=== PATIENT | female | born 1950 | race Caucasian/White ===

== ENCOUNTER 2016-04-02 02:46 | Inpatient (IN) | payer OTHER ==
[~2016-04-02] VITALS: Ht 154.9 cm; Wt 80.0 kg
[~2016-04-02 02:46] MED LIST: ASPI81TA3 PO; CRB100TCR PO; FLUTICASONE NS; GABA300C16 PO; LEVE-5 PO; LEVETIRACETAM; LORATIDINE PO; MONTELUKAST PO; PANT40TA4 PO; SUCR1TAB27 PO; VENTOLIN
[2016-04-02 06:00] VITALS: BP 125/71; PULSE 68; RESP 18
[2016-04-02 06:03] VITALS: Ht 154.9 cm; Wt 80.0 kg
[2016-04-02] MEDS ORDERED: LEVE500S9 PO (06:34)
[2016-04-02] MEDS ORDERED: ONDANSETRON 4 MG INJ IV PRN ×2 (07:00→10:30)
[2016-04-02] MEDS ORDERED: morphine 10 MG INJ IM PRN (07:00)
[2016-04-02] MEDS ORDERED: DEXTROSE 5%-0.45% NACL 1,000 ML IV SCH (07:00)
[2016-04-02 07:41] VITALS: BP 134/75; RESP 20
[2016-04-02] MEDS ORDERED: BISACODYL 10 MG SUPP PR PRN (10:30)
[2016-04-02] MEDS ORDERED: DOCUSATE SODIUM 100 MG CAP PO PRN (10:30)
[2016-04-02] MEDS ORDERED: NACL 0.9% 3 ML SYG IV SCH (10:30)
[2016-04-02] MEDS ORDERED: ACETAMINOPHEN 650 MG SUPP PR PRN (10:30)
[2016-04-02] MEDS ORDERED: ZOLPIDEM 5 MG TAB PO PRN (10:30)
[2016-04-02] MEDS: D5W-0.45 NACL + KCL 20 MEQ 1,000 ML IV SCH ×2 (10:30→18:55)
[2016-04-02 11:22] LABS: HEMATOCRIT 35.3 % (37.0-47.0); HEMOGLOBIN 11.6 g/dl (12.0-16.0)
[2016-04-02] MEDS: CIPROFLOXACIN 400MG/D5W 200 ML IVPB SCH ×2 (11:38→20:53)
[2016-04-02] MEDS: LEVETIRACETAM (100 MG/ML) 5ML CUP PO SCH ×2 (11:38→20:53)
[2016-04-02] MEDS ORDERED: traMADol 50 MG TAB PO PRN (13:30)
[2016-04-02 16:21] LABS: HEMOGLOBIN 11.2 g/dl (12.0-16.0)
[2016-04-02] MEDS ORDERED: CARI350T29 PO (16:54)
[2016-04-02] MEDS ORDERED: PANT40TA4 PO (16:54)
[2016-04-02] MEDS ORDERED: CARAS PO (16:54)
[2016-04-02] MEDS ORDERED: LORA1TAB PO (17:01)
[2016-04-02] MEDS ORDERED: LEVO50TA74 PO (17:01)
--- NOTE | 2016-04-02 17:22 | HP ---
DATE OF ADMISSION: 04/02/2016 CONSULTANTS: 1. Colorectal surgeon. 2. Tailing Machine Operator. CHIEF COMPLAINT: Lower gastrointestinal bleed. 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 She had an upper endoscopy with biopsy on 09/28/2015 and had a colonoscopy with biopsy on 11/17 and was referred to a colorectal surgeon as outpatient. Just recently patient got approval b y her insurance to be seen and evaluated by colorectal surgeon. After evaluation by colorectal surg pritesh, the patient has been set up to obtain a rectal biopsy by the surgeon waiting for clearance and approval by her insurance company. Per patient, the patient just got approved and has been schedule d for a rectal biopsy on 04/16/2016. Although yesterday on 04/01/2016, the patient while using the restroom noticed rectal bleed; therefore she went to [facility] where she was found to have hemoglobin of 11.5, hematocrit 35.2. She was also found to have urinary tract infection and was tr eated with IV antibiotics. Secondary to insurance purposes, the patient was transferred to [facility]. The patient's checker/stocker and colorectal surgeon were consulted and is planned for rectal mass biopsy during this course of hospitalization. PAST MEDICAL AND SURGICAL HISTORY: As above per HPI. MEDICATIONS: 1. Aspirin. 2. Gabapentin. 3. Keppra. 4. Protonix. 5. Sucralfate. 6. . 7. Loratadine. 8. Singulair. 9. Ventolin. ALLERGIES: NO KNOWN DRUG ALLERGIES. FAMILY HISTORY: No history of cancer. Positive for hypertension. SOCIAL HISTORY: Positive history of drug abuse/heroin abuse in remission. [place] of smoking in [place] At this time, the patient lives at home with her daughter. REVIEW OF SYSTEMS: The patient denies having any fever, chills, weight gain, weight loss, anorexia. No chest pain, palpitations, edema, orthopnea. No change in visual acuity, diplopia, photophobia. No headache, dizziness, lightheadedness. Positive for lower abdominal region pain and rectal blee d. No heat and cold intolerance. No hair loss or any other discomfort. The other 12 review of s tems has been found to be negative. PHYSICAL EXAMINATION: VITAL SIGNS: Temperature 97.8, pulse 60, respirations 20, blood pressure 134/75, oxygen saturation 98% in room air. GENERAL APPEARANCE: The patient is lying in the bed comfortably without any acute distress. She is awake, alert, oriented. She is able to answer my questions properly. EYES AND ENT: Conjunctivae and lids are normal. Pupils are normal. Extraocular normal. Hearing g rossly normal. Lips and gums are normal. Oral mucosa is moist. NECK: Supple. Trachea is midline. No lymphadenopathy. RESPIRATORY: Effort is normal. Clear to auscultation bilaterally. CARDIOVASCULAR: Normal S1, S2. Regular rhythm and rate. No murmur, no bruits, no edema. Peripher al pulses, radial pulses palpable. Capillary refill is normal. CHEST: Normal expansion of thorax during inspiration. GASTROINTESTINAL: Abdomen is soft, nontender, not distended. Bowel sounds present. No guarding, n o rebound. GENITOURINARY: Deferred. MUSCULOSKELETAL: Upper and lower extremities within normal limits. Full range of motion. Strength 5/5 both upper and lower extremities. NEUROLOGIC: Cranial nerves II through XII are grossly intact. PSYCHIATRIC: Normal judgment and insight. Alert and oriented x3. Mood and affect is normal. LABORATORY WORK AND IMAGING: Sodium 140, potassium 3.9, chloride 107, bicarbonate 24, BUN 13, creat inine 1.07. GFR 55. AST 23, ALT 28, alkaline phosphatase of 112. PT 11.1, INR less than 1. Blood type O positive. Urine leukocyte esterase positive 3, nitrite positive, blood positive, RBC 6 to 1 0, WBC 100. ASSESSMENT AND PLAN: 1. History of rectal mass with positive rectal bleed. This is likely secondary to the rectal mass. Tailing Machine Operator and colorectal surgeon have been consulted. The patient has been set up for delaney rgical intervention/biopsy of the rectal mass this upcoming on 04/04/2016. We will follow up pathology and patient will be set up for chemotherapy and radiation therapy as per colorectal chano geon. 2. History of seizure disorder. Continue Keppra. 3. History of gastroesophageal reflux disease. Continue proton pump inhibitor. 4. History of neuropathy. Continue gabapentin. 5. History of transient ischemic attack. Continue aspirin. Follow up lipid panel in a.m. and marta t accordingly. 6. For deep venous thrombosis prophylaxis, place the patient on sequential compression devices. Re frain from using any pharmacologic deep venous thrombosis prophylaxis secondary to rectal bleed. 7. At this time, the patient has been admitted to medical/surgical. The patient's comorbidities ar e history of TIA with asthma. We will obtain an EKG. The patient will be evaluated tomorrow by the hospitalist regarding the evaluation preop and biopsy of the rectal mass after evaluation of the EK G and other comorbidities. The patient is moderate/intermediate risk for any surgical intervention secondary to her comorbidities. Total amount of time spent for evaluation of patient and admission workup 40 minutes. Dictated By: ELIDIA CAR MD PN/NTS Conf#: [id number] DID#: [id number]
[2016-04-02 19:23] VITALS: BP 125/79; RESP 20
[2016-04-02] MEDS: ACETAMINOPHEN 325 MG TAB PO PRN (19:41)
[2016-04-02] MEDS: GABAPENTIN 300 MG CAP PO SCH (20:53)
[2016-04-02] MEDS: MONTELUKAST 5 MG TAB PO SCH (20:54)
--- NOTE | 2016-04-02 22:16 | CONS ---
Date/Time of Note Date/Time of Note DATE: 04/02/16 TIME: 22:04 Assessment/Plan Assessment/Plan Chief Complaint/Hosp Course Ms. Marte is a 65 y/o with a suspicious anal mass who I saw recently in my office. 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 Due to my suspicion of malignancy, I had scheduled an outpatient EUA with biopsy. Andreiler today, she presented to the ED with bleeding, though her H/H is not significantly different from what it was last year. We will perform her clearance for surgery while hospitalized, watch serial H/H and on she is scheduled for an EUA with biopsy of her anal lesion. Problems: Consultation Date/Type/Reason Admit Date/Time Apr 02, 2016 at 05:46 Date of Consultation: Apr 02, 2016 Type of Consultation: Colorectal Surgery Reason for Consultation Anal mass, rectal bleeding Referring Provider: ELIDIA CAR MD Hx of Present Illness Ms. Marte underwent an EGD/colonoscopy on 11/30/[address] Avalos to work up rectal bleeding and abdominal pains. She has a history of gastric ulcers. On these exams, she was found to have a hiatal hernia, gastritis, a colon polyp at 70 cm from the anal verge, internal and external hemorrhoids and an "anal mass. " Biopsies revealed the colon polyp and the anal lesion to both be "hyperplastic polyps." Due to the suspicious nature of the anal mass, she was referred to me. She reports occasional anorectal pain and bleeding on the stool and TP at times. She has a daily BM that can be difficult at times. She recently developed rectal bleeding that was worrisome for her so she went to the [facility]. She was transferred to [facility] due to insurance carriers. Currently, she denies any rectal bleeding. ROS: Constitutional: The patient denied fever and chills. Eyes: The patient complained of blurred vision (wear glasses). Ears/Nose/Throat/Neck: The patient denied hearing loss and dysphagia. Cardiovascular: The patient denied chest pain, chest pressure and palpitations. Respiratory: The patient denied cough and dyspnea. Gastrointestinal: The patient complained of nausea (when laying down after meals), rectal bleeding and rectal pain but denied vomiting, diarrhea, constipation and rectal itching. Genitourinary/Nephrology: The patient complained of nocturia but denied dysuria and hematuria. Neurologic: The patient complained of headache and seizure (last seizure was about 5 years ago) but denied tremor. Hematologic/Lymphatic: The patient complained of easy bruising but denied easy bleeding and prolonged bleeding. Past Medical History Epilepsy Peptic ulcers Personal history of transient ischemic attack (TIA), and cerebral infarction without residual deficits Past Surgical History ORIF, lower extremity Transvaginal "suspension" surgery Tonsillectomy Social History Smoking Status: Never smoker Drug Use: other (Former IVDA) Exam/Review of Systems Vital Signs Vitals Vital Signs Date Time Temp Pulse Resp B/P Pulse Ox O2 Delivery O2 Flow Rate FiO2 04/02/16 19:23 97.5 65 20 125/79 97 04/02/16 06:00 Room Air Exam PE: Constitutional general appearance overall: well nourished and well developed Eyes pupils and irises overall: pupils equal, round, reactive to light and accomodation Ears/Nose/Throat lips/teeth/gingiva overall: benign lips, normal dentition and benign gingiva Neck inspection of neck overall: normal size, normal appearance and no masses Respiratory auscultation overall: breath sounds clear bilaterally respiratory effort/rhythm overall: no retractions and normal rate Cardiovascular auscultation of heart overall: regular rate, normal heart sounds and no murmurs inspection of pedal pulses overall: strong, equal bilaterally extremities overall: no edema and no clubbing Abdomen abdominal exam overall: no tenderness percussion: a normal exam rectal exam inspection: Normal appearing perianal skin palpation: anal mass in right lateral anal proximal anal canal ANOSCOPIC EXAM anal polyp firm lesion occupying right lateral anal canal, mild bleeding Musculoskeletal gait and station overall: normal gait and normal station Neurologic mental status overall: alert and oriented Psychiatric orientation/consciousness overall: oriented to person, place and time Results Result Diagram: 04/02/16 1610 Results 24 hrs Laboratory Tests Test 04/02/16 10:50 04/02/16 16:10 Hematocrit 35.3 L 34.0 L Hemoglobin 11.6 L 11.2 L Medications Medications Current Medications Ciprofloxacin/ Dextrose 200 ml @ 200 mls/hr Q12 IVPB Last administered on 04/02t 20:53; Admin Dose 200 MLS/HR; Start 04/02/16 at 11:30 Potassium Chloride/Dextrose/ Sod Cl (D5-1/2ns + KCl 20 Meq) 1,000 ml @ 75 mls/ hr [id number] IV Last administered on 04/02/16 18:55; Admin Dose 75 MLS/HR; Start 04/02/16 at 10:30 Ondansetron HCl (Zofran Inj) 4 mg Q6H PRN IV NAUSEA AND/OR VOMITING; Start at 10:30 Acetaminophen (Tylenol Tab) 650 mg Q6H PRN PO PAIN LEVEL 1-3 OR FEVER Last administered on 04/02/16 19:41; Admin Dose 650 MG; Start 04/02/16 at 10:30 Acetaminophen (Tylenol Supp) 650 mg Q6H PRN [place] PAIN LEVEL 1-3 OR FEVER; Start 04/02/16 at 10:30 Docusate Sodium (Colace) 100 mg Q12H PRN PO CONSTIPATION; Start 04/02/16 at 10: 30 Bisacodyl (Dulcolax Supp) 10 mg DAILY PRN [place] CONSTIPATION; Start 04/02/16 at 10 :30 Zolpidem Tartrate (Ambien) 5 mg QHS PRN PO SLEEP; Start 04/02/16 at 10:30 Pantoprazole (Protonix Iv) 40 mg DAILY@06 IV ; Start 04/03/16 at 06:00 Gabapentin (Neurontin) 300 mg BID PO Last administered on 04/02/16 20:53; Admin Dose 300 MG; Start 04/02/16 at 21:00 Levetiracetam (Keppra Liquid) 1,000 mg BID PO Last administered on 04/02/16 20 :53; Admin Dose 1,000 MG; Start 04/02/16 at 11:30 Montelukast Sodium (Singulair) 5 mg HS PO Last administered on 04/02/16 20:54 ; Admin Dose 5 MG; Start 04/02/16 at 21:00 Tramadol HCl (Ultram) 50 mg Q8H PRN PO PAIN; Start 04/02/16 at 13:30 LUCIANO CHAUDHARI MD Apr 02, 2016 22:15
[2016-04-02 22:52] LABS: HEMATOCRIT 34.5 % (37.0-47.0); HEMOGLOBIN 11.4 g/dl (12.0-16.0)
[2016-04-03] MEDS: PANTOPRAZOLE 40 MG INJ IV SCH (05:26)
[2016-04-03] MEDS ORDERED: PANTOPRAZOLE 40 MG INJ IV SCH (06:00)
[2016-04-03 06:52] LABS: BASOPHILS % 0.6 % (0.0-2.0); EOSINOPHILS # 0.2 10^3/ul (0.0-0.5); EOSINOPHILS % 3.7 % (0.0-7.0); HEMATOCRIT 34.1 % (37.0-47.0); HEMOGLOBIN 11.4 g/dl (12.0-16.0); LYMPHOCYTES # 1.6 10^3/ul (0.8-2.9); LYMPHOCYTES % 35.1 % (15.0-51.0); MEAN CORPUSCULAR HEMOGLOBIN 27.1 pg (29.0-33.0); MEAN CORPUSCULAR HGB CONC 33.5 g/dl (32.0-37.0); MEAN CORPUSCULAR VOLUME 80.9 fl (82.0-101.0); MEAN PLATELET VOLUME 8.1 fl (7.4-10.4); MONOCYTE # 0.4 10^3/ul (0.3-0.9); MONOCYTES % 9.7 % (0.0-11.0); NEUTROPHIL # 2.3 10^3/ul (1.6-7.5); NEUTROPHILS % 50.9 % (39.0-77.0); PLATELET COUNT 269 10^3/UL (140-440); RED BLOOD COUNT 4.22 10^6/ul (4.20-5.40); RED CELL DISTRIBUTION WIDTH 13.8 % (11.5-14.5); UNCORRECTED WBC 4.5 10^3/ul (4.8-10.8); WHITE BLOOD COUNT 4.5 10^3/ul (4.8-10.8)
[2016-04-03 06:54] LABS: IRON 98 ug/dl (35-150); POTASSIUM 4.1 mmol/L (3.5-5.1)
[2016-04-03 06:57] LABS: CREATININE 0.68 mg/dl (0.44-1.00)
[2016-04-03 07:00] LABS: CHOL/HDL RATIO 3.3 RATIO
[2016-04-03 07:05] LABS: TOTAL IRON BINDING CAPACITY 307 ug/dl (241-421)
[2016-04-03 07:09] LABS: CONDITION 1; LH ANALYZER COMMENTS 1
[2016-04-03 07:30] LABS: FERRITIN 14.4 ng/ml (11.1-264.0)
[2016-04-03 07:47] VITALS: BP 133/77; RESP 18
[2016-04-03] MEDS: GABAPENTIN 300 MG CAP PO SCH ×2 (08:48→20:35)
[2016-04-03] MEDS: LEVETIRACETAM (100 MG/ML) 5ML CUP PO SCH ×2 (08:49→20:35)
[2016-04-03] MEDS: CIPROFLOXACIN 400MG/D5W 200 ML IVPB SCH ×2 (08:49→20:36)
[2016-04-03] MEDS: ACETAMINOPHEN 325 MG TAB PO PRN (08:53)
--- NOTE | 2016-04-03 10:15 | PN ---
Date/Time of Note Date/Time of Note DATE: 04/03/16 TIME: 10:13 Assessment/Plan VTE Prophylaxis VTE Prophylaxis Intervention: SCD's Lines/Catheters IV [facility] Peripheral IV Urinary Cath still in place: No Assessment/Plan Assessment/Plan 1. History of rectal mass with positive rectal bleed. This is likely secondary to the rectal mass. Welder Gun and colorectal surgeon have been consulted. The patient has been set up for surgical intervention/biopsy of the rectal mass this upcoming on 04/04/2016. We will follow up pathology and patient will be set up for chemotherapy and radiation therapy as per colorectal surgeon. 2. History of seizure disorder. Continue Keppra. 3. History of gastroesophageal reflux disease. Continue proton pump inhibitor. 4. History of neuropathy. Continue gabapentin. 5. History of transient ischemic attack. Continue aspirin. Follow up lipid panel in a.m. and treat accordingly. 6. For deep venous thrombosis prophylaxis, place the patient on sequential compression devices. Refrain from using any pharmacologic deep venous thrombosis prophylaxis secondary to rectal bleed. 7. At this time, the patient has been admitted to medical/surgical. The patient's comorbidities are history of TIA with asthma. We will obtain an EKG. The patient will be evaluated tomorrow by the hospitalist regarding the evaluation preop and biopsy of the rectal mass after evaluation of the EKG and other comorbidities. The patient is moderate/intermediate risk for any surgical intervention secondary to her comorbidities. Total amount of time spent for evaluation of patient and admission workup 40 minutes. Subjective 24 Hr Interval Summary Free Text/Dictation no acute events, GI and Colorectal surgery has been consulted, waiting for evaluation Exam/Review of Systems Vital Signs Vitals Vital Signs Date Time Temp Pulse Resp B/P Pulse Ox O2 Delivery O2 Flow Rate FiO2 04/03/16 07:47 97.5 69 18 133/77 97 04/02/16 06:00 Room Air Intake and Output 04/02/16 04/02/16 04/03/16 15:00 23:00 07:00 Intake Total 2480 ml 1040 ml Output Total 0 ml Balance 2480 ml 1040 ml Exam GENERAL APPEARANCE: no acute distress RESPIRATORY: Effort is normal. Clear to auscultation bilaterally. CARDIOVASCULAR: Normal S1, S2. Regular rhythm and rate. CHEST: Clear to auscultation GASTROINTESTINAL: Abdomen is soft, nontender, not distended. Bowel sounds present. No guarding, no rebound. Results Result Diagram: 04/03/16 0540 04/03/16 0540 Results 24 hrs Laboratory Tests Test 04/02/16 10:50 04/02/16 16:10 04/02/16 22:30 04/03/16 05:40 Hematocrit 35.3 L 34.0 L 34.5 L 34.1 L Hemoglobin 11.6 L 11.2 L 11.4 L 11.4 L Anion Gap 14 Basophils # 0.0 Basophils % 0.6 Blood Morphology Comment Blood Urea Nitrogen 7 Calcium Level 9.0 Carbon Dioxide Level 24 Chloride Level 109 Creatinine 0.68 Eosinophils # 0.2 Eosinophils % 3.7 Ferritin 14.4 Glucose Level 121 Iron Level 98 Lymphocytes # 1.6 Lymphocytes % 35.1 Magnesium Level 2.0 Mean Corpuscular Hemoglobin 27.1 L Mean Corpuscular Hemoglobin Concent 33.5 Mean Corpuscular Volume 80.9 L Mean Platelet Volume 8.1 Monocytes # 0.4 Monocytes % 9.7 Neutrophils # 2.3 Neutrophils % 50.9 Nucleated Red Blood Cells # 0.0 Nucleated Red Blood Cells % 0.0 Percent Iron Saturation 32 Platelet Count 269 Potassium Level 4.1 Red Blood Count 4.22 Red Cell Distribution Width 13.8 Sodium Level 143 Total Iron Binding Capacity 307 White Blood Count 4.5 L Test 04/03/16 05:55 Cholesterol Level 158 Cholesterol/HDL Ratio 3.3 HDL Cholesterol 47 LDL Cholesterol, Calculated 80 Triglycerides Level 153 H Medications Medications Current Medications Ciprofloxacin/ Dextrose 200 ml @ 200 mls/hr Q12 IVPB Last administered on 04/03 08:49; Admin Dose 200 MLS/HR; Start 04/02/16 at 11:30 Potassium Chloride/Dextrose/ Sod Cl (D5-1/2ns + KCl 20 Meq) 1,000 ml @ 75 mls/ hr [id number] IV Last administered on 04/02/16 18:55; Admin Dose 75 MLS/HR; Start 04/02/16 at 10:30 Ondansetron HCl (Zofran Inj) 4 mg Q6H PRN IV NAUSEA AND/OR VOMITING; Start at 10:30 Acetaminophen (Tylenol Tab) 650 mg Q6H PRN PO PAIN LEVEL 1-3 OR FEVER Last administered on 04/03/16 08:53; Admin Dose 650 MG; Start 04/02/16 at 10:30 Acetaminophen (Tylenol Supp) 650 mg Q6H PRN [place] PAIN LEVEL 1-3 OR FEVER; Start 04/02/16 at 10:30 Docusate Sodium (Colace) 100 mg Q12H PRN PO CONSTIPATION; Start 04/02/16 at 10: 30 Bisacodyl (Dulcolax Supp) 10 mg DAILY PRN [place] CONSTIPATION; Start 04/02/16 at 10 :30 Zolpidem Tartrate (Ambien) 5 mg QHS PRN PO SLEEP; Start 04/02/16 at 10:30 Pantoprazole (Protonix Iv) 40 mg DAILY@06 IV Last administered on 04/03/16 05: 26; Admin Dose 40 MG; Start 04/03/16 at 06:00 Gabapentin (Neurontin) 300 mg BID PO Last administered on 04/03/16 08:48; Admin Dose 300 MG; Start 04/02/16 at 21:00 Levetiracetam (Keppra Liquid) 1,000 mg BID PO Last administered on 04/03/16 08 :49; Admin Dose 1,000 MG; Start 04/02/16 at 11:30 Montelukast Sodium (Singulair) 5 mg HS PO Last administered on 04/02/16 20:54 ; Admin Dose 5 MG; Start 04/02/16 at 21:00 Tramadol HCl (Ultram) 50 mg Q8H PRN PO PAIN; Start 04/02/16 at 13:30 KAILEE BAJWA MD Apr 03, 2016 10:15
[2016-04-03] MEDS: D5W-0.45 NACL + KCL 20 MEQ 1,000 ML IV SCH (13:04)
--- NOTE | 2016-04-03 14:51 | RADRPT ---
Vent Rate: 60 bpm RR Interval: 0 msec CA Interval: 134 msec QRS Duration: 70 msec QT Interval: 424 msec QTC Interval: 424 msec P-R-T [place]: 53 - 65 - 64 degrees Normal sinus rhythm Normal ECG Electronically Signed By: Tor Choudhary [id number]
--- NOTE | 2016-04-03 17:33 | CONS ---
Date/Time of Note Date/Time of Note DATE: 04/03/16 TIME: 17:31 Assessment/Plan Assessment/Plan Additional Assessment/Plan ASSESSMENT AND PLAN: 1. History of Anal mass,rectal bleeding stable 2. History of seizure disorder. Continue Keppra. 3. History of gastroesophageal reflux disease. Continue proton pump inhibitor. 4. History of neuropathy. Continue gabapentin. 5. History of transient ischemic attack. Continue aspirin. Follow up lipid panel in a.m. and treat accordingly. Plan biopsy of Anal mass by Dr. Frye monitor H&H Consultation Date/Type/Reason Admit Date/Time Apr 02, 2016 at 05:46 Initial Consult Date 04/02/16 Type of Consultation: Colorectal Surgery Referring Provider: ELIDIA CAR MD 24 HR Interval Summary Free Text/Dictation no further bleeding Exam/Review of Systems Vital Signs Vitals Vital Signs Date Time Temp Pulse Resp B/P Pulse Ox O2 Delivery O2 Flow Rate FiO2 04/03/16 07:47 97.5 69 18 133/77 97 04/02/16 06:00 Room Air Intake and Output 04/02/16 04/02/16 04/03/16 15:00 23:00 07:00 Intake Total 2480 ml 1040 ml Output Total 0 ml Balance 2480 ml 1040 ml Exam Constitutional: alert, oriented, well developed Psych: nl mood/affect, no complaints Head: atraumatic, normocephalic Eyes: EOMI, PERRL, nl conjunctiva, nl lids, nl sclera ENMT: nl external ears & nose, nl lips & teeth, nl nasal mucosa & septum Neck: non-tender, supple Respiratory: clear to auscultation, normal air movement Cardiovascular: nl pulses, regular rate and rhythm Gastrointestinal: nl liver, spleen, non-tender, soft Musculoskeletal: nl extremities to inspection, nl gait and stance Extremities: normal pulses Neurological: ENROLLMENT NURSE II-XII intact, nl mental status, nl speech, nl strength Skin: nl turgor, No rash or lesions Lymph: nl lymph nodes Results Result Diagram: 04/03/16 0540 04/03/16 0540 Results 24 hrs Laboratory Tests Test 04/02/16 22:30 04/03/16 05:40 04/03/16 05:55 Hematocrit 34.5 L 34.1 L Hemoglobin 11.4 L 11.4 L Anion Gap 14 Basophils # 0.0 Basophils % 0.6 Blood Morphology Comment Blood Urea Nitrogen 7 Calcium Level 9.0 Carbon Dioxide Level 24 Chloride Level 109 Creatinine 0.68 Eosinophils # 0.2 Eosinophils % 3.7 Ferritin 14.4 Glucose Level 121 Iron Level 98 Lymphocytes # 1.6 Lymphocytes % 35.1 Magnesium Level 2.0 Mean Corpuscular Hemoglobin 27.1 L Mean Corpuscular Hemoglobin Concent 33.5 Mean Corpuscular Volume 80.9 L Mean Platelet Volume 8.1 Monocytes # 0.4 Monocytes % 9.7 Neutrophils # 2.3 Neutrophils % 50.9 Nucleated Red Blood Cells # 0.0 Nucleated Red Blood Cells % 0.0 Percent Iron Saturation 32 Platelet Count 269 Potassium Level 4.1 Red Blood Count 4.22 Red Cell Distribution Width 13.8 Sodium Level 143 Total Iron Binding Capacity 307 White Blood Count 4.5 L Cholesterol Level 158 Cholesterol/HDL Ratio 3.3 HDL Cholesterol 47 LDL Cholesterol, Calculated 80 Triglycerides Level 153 H Medications Medications Current Medications Ciprofloxacin/ Dextrose 200 ml @ 200 mls/hr Q12 IVPB Last administered on 04/03 08:49; Admin Dose 200 MLS/HR; Start 04/02/16 at 11:30 Potassium Chloride/Dextrose/ Sod Cl (D5-1/2ns + KCl 20 Meq) 1,000 ml @ 75 mls/ hr [id number] IV Last administered on 04/03/16 13:04; Admin Dose 75 MLS/HR; Start 04/02/16 at 10:30 Ondansetron HCl (Zofran Inj) 4 mg Q6H PRN IV NAUSEA AND/OR VOMITING; Start at 10:30 Acetaminophen (Tylenol Tab) 650 mg Q6H PRN PO PAIN LEVEL 1-3 OR FEVER Last administered on 04/03/16 08:53; Admin Dose 650 MG; Start 04/02/16 at 10:30 Acetaminophen (Tylenol Supp) 650 mg Q6H PRN [place] PAIN LEVEL 1-3 OR FEVER; Start 04/02/16 at 10:30 Docusate Sodium (Colace) 100 mg Q12H PRN PO CONSTIPATION; Start 04/02/16 at 10: 30 Bisacodyl (Dulcolax Supp) 10 mg DAILY PRN [place] CONSTIPATION; Start 04/02/16 at 10 :30 Zolpidem Tartrate (Ambien) 5 mg QHS PRN PO SLEEP; Start 04/02/16 at 10:30 Pantoprazole (Protonix Iv) 40 mg DAILY@06 IV Last administered on 04/03/16 05: 26; Admin Dose 40 MG; Start 04/03/16 at 06:00 Gabapentin (Neurontin) 300 mg BID PO Last administered on 04/03/16 08:48; Admin Dose 300 MG; Start 04/02/16 at 21:00 Levetiracetam (Keppra Liquid) 1,000 mg BID PO Last administered on 04/03/16 08 :49; Admin Dose 1,000 MG; Start 04/02/16 at 11:30 Montelukast Sodium (Singulair) 5 mg HS PO Last administered on 04/02/16 20:54 ; Admin Dose 5 MG; Start 04/02/16 at 21:00 Tramadol HCl (Ultram) 50 mg Q8H PRN PO PAIN; Start 04/02/16 at 13:30 FERNANDO ARAMBULA MD Apr 03, 2016 17:33
--- NOTE | 2016-04-03 17:50 | CONS ---
DATE OF ADMISSION: 04/02/2016 DATE OF CONSULTATION: 04/02/2016 TYPE OF CONSULTATION: Gastroenterology. REFERRING PHYSICIAN: Dr. Desir Thank you for asking me to see your patient in consultation. HISTORY OF PRESENT ILLNESS: She is a 65-year-old female with a history of drug abuse in remission f or the past 20 years, seizure disorder, GERD, bronchial asthma, and TIA who came to the hospital com plaining of lower GI bleeding. The patient had a colonoscopy done by me as an outpatient. Polyp wa s removed. Those polyps were benign, but the patient had an anal lesion, so the patient was referre d to the treadle cut off saw operator for the biopsy and possible treatment. The patient was seen by Dr. Frye and h ad been advised to get biopsy done as an outpatient, but in the interim, the patient developed recta l bleeding and got admitted to the hospital. MEDICATIONS: Include 1. Aspirin. 2. Gabapentin. 3. Keppra. 4. Protonix. 5. Sucralfate. 6. Loratadine. 7. Singulair. 8. Ventolin. ALLERGIES: NO KNOWN DRUG ALLERGIES. FAMILY HISTORY: No family history of cancer. PHYSICAL EXAMINATION: GENERAL: Overweight, not in distress. VITAL SIGNS: Stable. HEENT: Unremarkable. NECK: Supple, no thyromegaly, no lymphadenopathy. CARDIOVASCULAR: No murmur, gallop, or click. LUNGS: Clear. ABDOMEN: Benign. CENTRAL NERVOUS SYSTEM: Grossly within normal limit. EXTREMITIES: No edema. IMPRESSION: 1. Rectal bleeding secondary to anal mass which needs further evaluation, definitely biopsy by Dr. Frye and maybe further treatment. 2. Seizure disorder. 3. History of gastroesophageal reflux disease. 4. History of neuropathy. 5. Transient ischemic attack in the past. PLAN: At this point is to monitor H and H. Proctology consult. In the interim, Sitz baths and fib er. Dictated By: FERNANDO MARROQUIN/RAHAT Conf#: [id number] DID#: [id number]
[2016-04-03 19:35] VITALS: BP 119/58; RESP 16
[2016-04-03] MEDS: MONTELUKAST 5 MG TAB PO SCH (20:36)
[2016-04-04] VITALS (10 sets, daily range): BP systolic 108–139; BP diastolic 73–94; PULSE 72–106; RESP 8–20
[2016-04-04] MEDS: D5W-0.45 NACL + KCL 20 MEQ 1,000 ML IV SCH ×2 (00:28→15:50)
[2016-04-04] MEDS: PANTOPRAZOLE 40 MG INJ IV SCH (05:30)
[2016-04-04] MEDS: GABAPENTIN 300 MG CAP PO SCH ×2 (09:13→20:40)
[2016-04-04] MEDS: LEVETIRACETAM (100 MG/ML) 5ML CUP PO SCH ×2 (09:13→20:40)
[2016-04-04] MEDS: CIPROFLOXACIN 400MG/D5W 200 ML IVPB SCH ×2 (09:13→20:40)
--- NOTE | 2016-04-04 14:24 | PDOCDIS ---
Discharge Instructions CONDITION Patient Condition: Good HOME CARE INSTRUCTIONS: Diet Instructions: RegularSpecial Diet: Regular ACTIVITY: Activity Restrictions: Slowly Increase Activity Rest between Activity Avoid heavy lifting FOLLOW UP/APPOINTMENTS Appointments Follow up with colorectal surgeon as outpatient Follow up with scallop cutter machine as outpatient Preferred IPA a to set up patient to follow up with juice bar team member oncologist ELIDIA CAR MD Apr 04, 2016 14:24
[2016-04-04] MEDS ORDERED: FENTAnyl 50 MCG/ML VIAL IV PRN ×3 (14:30)
[2016-04-04] MEDS ORDERED: MEPERIDINE 25 MG INJ IV PRN ×2 (14:30)
[2016-04-04] MEDS ORDERED: DIPHENHYDRAMINE 50 MG INJ IV PRN ×2 (14:30)
[2016-04-04] MEDS ORDERED: EPHEDrine SULFATE 50 MG/5 ML SYG IV PRN (14:30)
[2016-04-04] MEDS ORDERED: LABETALOL HCL 20MG INJ IV PRN (14:30)
[2016-04-04] MEDS ORDERED: ALBUTEROL 0.5% (NEB) 2.5 MG/0.5 ML AMP INH PRN (14:30)
[2016-04-04] MEDS ORDERED: hydrALAzine 20 MG INJ IV PRN (14:30)
[2016-04-04] MEDS ORDERED: MIDAZOLAM 1 MG/ML 2 ML INJ IV PRN (14:30)
[2016-04-04] MEDS ORDERED: morphine (1 MG/ML) 10ML SYRINGE IV PRN ×3 (14:30)
[2016-04-04] MEDS ORDERED: OXYCODONE/ACETAMINOPHEN (5/325) TAB PO PRN ×2 (14:30)
[2016-04-04] MEDS ORDERED: ATROPINE 1 MG/10 ML SYRINGE IV PRN (14:30)
[2016-04-04] MEDS ORDERED: ONDANSETRON 4 MG INJ IV PRN ×2 (14:30)
[2016-04-04] MEDS ORDERED: HYDROmorphONE (0.2 MG/ML) 10ML SYG IV PRN ×3 (14:30)
[2016-04-04] MEDS ORDERED: MIDAZOLAM 1 MG/ML 2 ML INJ ONE (14:31)
[2016-04-04] MEDS ORDERED: SUCCINYLCHOLINE CHLORIDE 100 MG/5 ML SYG IV ONE (14:31)
[2016-04-04] MEDS ORDERED: PROPOFOL 20 ML ONE (14:31)
[2016-04-04] MEDS ORDERED: FENTAnyl 50 MCG/ML VIAL ONE (14:31)
[2016-04-04] MEDS ORDERED: LIDOCAINE 2% (SDV) 5 ML INJ ONE (14:31)
[2016-04-04] MEDS ORDERED: EPHEDrine SULFATE 50 MG/5 ML SYG ONE (14:35)
[2016-04-04] MEDS ORDERED: LIDOCAINE 1% (MPF) 30 ML INJ ONE (14:37)
[2016-04-04] MEDS ORDERED: BUPIVACAINE 0.25%/EPI (SDV) 30 ML INJ ONE (14:37)
[2016-04-04] MEDS ORDERED: DEXAMETHASONE 4 MG/ML 1 ML INJ ONE (15:01)
[2016-04-04] MEDS ORDERED: ONDANSETRON 4 MG INJ ONE (15:01)
--- NOTE | 2016-04-04 15:12 | DS ---
DATE OF ADMISSION: 04/02/2016 DATE OF DISCHARGE: 04/04/2016 CONSULTANTS: LUCIANO CHAUDHARI MD AND FERNANDO ARAMBULA MD. FINAL DIAGNOSIS: 1. History of rectal mass with positive rectal bleed. Assessment Nurse colorectal surgeon has be en consulted. Patient has been set up for surgical intervention of biopsy today. He will be discha rged home and follow up with colorectal surgeon as outpatient and follow up with [facility] and can supply supervisor/oncolo gist for radiation versus chemotherapy. 2. History of seizure disorder on Keppra. 3. History of gastroesophageal reflux disease on proton pump inhibitor. 4. Neuropathy on gabapentin. 5. History of transient ischemic attack on aspirin. 6. History of drug abuse in remission. MEDICATIONS: 1. Aspirin. 2. Soma. 3. Keppra. 4. Levothyroxine. 5. Lorazepam. 6. Protonix. 7. Fluconazole. 8. Montelukast. 9. Ventolin. ALLERGIES: NO KNOWN DRUG ALLERGIES. FAMILY HISTORY: Noncontributory. DISPOSITION: Home. LABORATORY: Sodium 143, potassium 4.1, chloride 109, bicarbonate 24, BUN 7, creatinine 0.68, glucos e 121, total iron 98, TIBC 37, iron saturation 32, ferritin 14.4, triglyceride 153, total cholestero l 158, LDL 80, HDL 47. WBC 4.5, hemoglobin 11.4, hematocrit 34.1, platelets 261, MCV 80.9. HOSPITAL COURSE: This is a 65-year-old female with past medical history of heroin abuse in [facility] for the past 20 years, seizure disorder, GERD, asthma, TIA who has been having lower GI bleed and has been seen and evaluated by cafe worker and colorectal surgeon as outpatient. Patient had endoscopy with biopsy on 09/28/2015 and a colonoscopy with biopsies on 12/17/2015 and was found to have some irregularity and possible mass in the rectal area. The patient was seen and evaluated by colorectal surgeon as outpatient has been set up for biopsy which was set for 04/16/2016, although o n 04/02/2016, the patient had an episode of lower GI/rectal bleed. Therefore she went to [facility]. Her hemoglobin was 11.5, hematocrit 35.2. Secondary to insurance purposes, the patient w as transferred to [facility] where cafe worker and colorectal surgeon was c onsulted. Patient was started on IV fluid, pain medication, IV antibiotics and the patient was foun d to have urinary tract infection in the course of the emergency room. After evaluation by colorect al surgeon, it was decided to proceed with the biopsy during this course of hospitalization. Today on 03/25/2016, the patient will be set up for biopsy of rectal mass and as my conversation with him and cafe worker, the patient will follow up with him as outpatient and will be set up to be f ollowed up with [facility] and can supply supervisor/oncologist as outpatient. Also, I have contacted the preferred [employer] e manager of security with the phone number [phone] to set the patient up for followup with [facility] and can supply supervisor/on cologist to evaluate the rectal mass biopsy and set the patient up for chemotherapy versus radiation therapy as outpatient. Patient will also follow up with colorectal surgeon as outpatient for the r esults of the biopsy. CONDITION AT TIME OF DISCHARGE: Stable. Total amount of time was spent for evaluation of patient and discharge workup 40 minutes. Dictated By: ELIDIA STEPHENSON/NTS Conf#: [id number] DID#: [id number]
[2016-04-04] MEDS ORDERED: ROCURONIUM 50 MG INJ ONE (15:19)
[2016-04-04] MEDS ORDERED: FAMOTIDINE 20 MG INJ ONE (15:25)
[2016-04-04] MEDS ORDERED: ACETAMINOPHEN 1000MG/100ML IV 100 ML ONE (15:28)
--- NOTE | 2016-04-04 15:41 | HPN ---
Date/Time of Note Date/Time of Note DATE: 04/04/16 TIME: 14:45 Interval H&P Admission Note Pt. seen H&P reviewed: No system changes LUCIANO CHAUDHARI MD Apr 04, 2016 15:41
--- NOTE | 2016-04-04 16:08 | OPR ---
Date/Time of Note Date/Time of Note DATE: 04/04/16 TIME: 15:52 Operative Report Procedure Date: Apr 04, 2016 Preoperative Diagnosis Anal mass Postoperative Diagnosis Right posterior anal carcinoma Operation Performed Proctosigmoidoscopy with biopsy, Rectal examination under anesthesia Surgeon: LUCIANO CHAUDHARI MD Anesthesia: general Estimated Blood Loss: minimal Specimens Anal biopsy Complications: None Pt Condition Post Procedure: stable Disposition: PACU Indications Anal mass, rectal bleeding Operative Findings Firm, ulcerated anal mass in right posterior anal canal approximately 3x3 cm in size. Procedure Description The patient was brought to the operating room and placed in the supine position on the operating room table. Next, after patient identification, general endotracheal anesthesia was established. Next, she was repositioned in the lithotomy position using Ameya stirrups. Then, after a surgical "time out," her perineum and perianal skin were prepped and draped in the usual, sterile fashion. Next, a digital rectal examination was performed with a lubricated finger. This revealed a firm, ulcerated anal mass in the right posterior quadrant. This felt approximately 3x3cm in size. Next, a rigid proctosigmoidoscopy was performed to 12 cm from the anal verge. This revealed a normal rectum. The proctoscope was removed without complication Next, an anal block was performed using a combination of 1% Lidocaine and 0.25% Marcaine injected under the skin at the anal verge circumferentially. Next, Snow retractors were used to examine the anus and distal rectum in more detail. This revealed an ulcerated mass in the anal canal in the right posterior quadrant. Biopsies were taken from the ulcer base and a pathology consult was obtained. 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 Bovie electrocautery was used for hemostasis. Once this was achieved, the procedure was complete. The Snow retractor was removed, the patient was returned to the supine position and anesthesia was discontinued. She was extubated without event and transferred to the PACU in stable condition. LUCIANO CHAUDHARI MD Apr 04, 2016 16:07
[2016-04-04] MEDS ORDERED: oxyCODONE 5 MG TAB PO PRN (16:30)
--- NOTE | 2016-04-04 17:57 | CONS ---
Date/Time of Note Date/Time of Note DATE: 04/04/16 TIME: 17:55 Assessment/Plan Assessment/Plan Additional Assessment/Plan IMPRESSION: 1. Rectal bleeding secondary to anal mass which needs further evaluation, 2. Seizure disorder. 3. History of gastroesophageal reflux disease. 4. History of neuropathy. 5. Transient ischemic attack in the past. 6.anal squamous cell carcinoma based on preliminary biopsy report Plan oncology,and radiation oncology consult Consultation Date/Type/Reason Admit Date/Time Apr 02, 2016 at 05:46 Initial Consult Date 04/02/16 Type of Consultation: Colorectal Surgery Referring Provider: ELIDIA CAR MD 24 HR Interval Summary Constitutional: improved Exam/Review of Systems Vital Signs Vitals Vital Signs Date Time Temp Pulse Resp B/P Pulse Ox O2 Delivery O2 Flow Rate FiO2 04/04/16 17:16 96.0 72 16 133/73 93 Room Air Intake and Output 04/03/16 04/03/16 04/04/16 15:00 23:00 07:00 Intake Total 400 ml 2280 ml 1570 ml Output Total 800 ml Balance 400 ml 2280 ml 770 ml Exam Constitutional: alert, oriented, well developed Psych: nl mood/affect, no complaints Head: atraumatic, normocephalic Eyes: EOMI, PERRL, nl conjunctiva, nl lids, nl sclera ENMT: nl external ears & nose, nl lips & teeth, nl nasal mucosa & septum Neck: non-tender, supple Respiratory: clear to auscultation, normal air movement Cardiovascular: nl pulses, regular rate and rhythm Gastrointestinal: nl liver, spleen, non-tender, soft Musculoskeletal: nl extremities to inspection, nl gait and stance Extremities: normal pulses Neurological: ELECTION WATCHER II-XII intact, nl mental status, nl speech, nl strength Skin: nl turgor, No rash or lesions Lymph: nl lymph nodes Results Result Diagram: 04/03/16 0540 04/03/16 0540 Medications Medications Current Medications Ciprofloxacin/ Dextrose 200 ml @ 200 mls/hr Q12 IVPB Last administered on 04/04t 09:13; Admin Dose 200 MLS/HR; Start 04/02/16 at 11:30 Potassium Chloride/Dextrose/ Sod Cl (D5-1/2ns + KCl 20 Meq) 1,000 ml @ 75 mls/ hr [id number] IV Last administered on 04/04/16 00:28; Admin Dose 75 MLS/HR; Start 04/02/16 at 10:30 Ondansetron HCl (Zofran Inj) 4 mg Q6H PRN IV NAUSEA AND/OR VOMITING; Start at 10:30 Acetaminophen (Tylenol Tab) 650 mg Q6H PRN PO PAIN LEVEL 1-3 OR FEVER Last administered on 04/03/16 08:53; Admin Dose 650 MG; Start 04/02/16 at 10:30 Acetaminophen (Tylenol Supp) 650 mg Q6H PRN NM PAIN LEVEL 1-3 OR FEVER; Start 04/02/16 at 10:30 Docusate Sodium (Colace) 100 mg Q12H PRN PO CONSTIPATION; Start 04/02/16 at 10: 30 Bisacodyl (Dulcolax Supp) 10 mg DAILY PRN NM CONSTIPATION; Start 04/02/16 at 10 :30 Zolpidem Tartrate (Ambien) 5 mg QHS PRN PO SLEEP Last administered on 22:17; Admin Dose 5 MG; Start 04/02/16 at 10:30 Pantoprazole (Protonix Iv) 40 mg DAILY@06 IV Last administered on 04/04/16 05: 30; Admin Dose 40 MG; Start 04/03/16 at 06:00 Gabapentin (Neurontin) 300 mg BID PO Last administered on 04/04/16 09:13; Admin Dose 300 MG; Start 04/02/16 at 21:00 Levetiracetam (Keppra Liquid) 1,000 mg BID PO Last administered on 04/04/16 09 :13; Admin Dose 1,000 MG; Start 04/02/16 at 11:30 Montelukast Sodium (Singulair) 5 mg HS PO Last administered on 04/03/16 20:36 ; Admin Dose 5 MG; Start 04/02/16 at 21:00 Tramadol HCl (Ultram) 50 mg Q8H PRN PO PAIN; Start 04/02/16 at 13:30 Oxycodone HCl (Roxicodone) 5 mg ONCE PRN PO PAIN LEVEL 1-5 Last administered on 04/04/16 16:22; Admin Dose 5 MG; Start 04/04/16 at 16:30; Stop 04/04/16 at 19:00 FERNANDO ARAMBULA MD Apr 04, 2016 17:57
[2016-04-04] MEDS: MONTELUKAST 5 MG TAB PO SCH (20:40)
== END 2016-04-04 22:40 | disposition home or self-care (01) | DRG 375 ==
LOC: MS2 05:46
PROVIDERS: ADMIT Internal Medicine; ATTEND Internal Medicine
PROC: 0DBQ8ZX Excision of Anus, Via Natural or Artificial Opening Endoscopic, Diagnostic (ICD-10-PCS; principal; 2016-04-04 14:30)
DX: C21.0 Malignant neoplasm of anus, unspecified (principal); K62.5 Hemorrhage of anus and rectum; Z86.73 Personal history of transient ischemic attack (TIA), and cerebral infarction without residual deficits; J45.909 Unspecified asthma, uncomplicated
CPT/HCPCS: 80048; 80061; 82728; 83540; 83735; 85014; 85018; 85025; 88307; 88331; 93005; C9113; J0131; J0330; J0744; J1100; J2250; J2270; J2405; J3010; J3480; J7042